=== PATIENT | male | born 1965 | race Caucasian/White ===

== ENCOUNTER 2020-12-23 12:00 | Outpatient (RCR) | payer BC, SELFPAY | END 2021-02-15 23:59 | LOC: IMMUN 12:00 | PROVIDERS: Referring Provider Family Medicine; Visit Provider Family Medicine | DX: Z23 Encounter for immunization (principal) | CPT/HCPCS: 0001A; 0002A; 91300 ==

== ENCOUNTER 2022-08-29 13:15 | Emergency (ER) | payer BC, SELFPAY ==
[2022-08-29 13:17] VITALS: BP 138/68; PULSE 79; RESP 18; TEMP 37.1; O2SAT 96; BMI 24.4
--- NOTE | 2022-08-29 13:43 | EX.ED.DYSGE1 ---
HPI History of Present Illness Chief Complaint: Nosebleed Narrative Narrative: Patient presents with left epistaxis. Started suddenly at work. He is having quite a bit of clots and quite brisk bleeding. No trauma. PFSH PFSH Medical History no medical history Home Medications clindamycin HCl 150 mg capsule 150 mg PO TID #15 caps 08/29/22 [Rx Last Taken Unknown] Allergy/AdvReac Type Severity Reaction Status Date / Time No Known Allergies Allergy Verified 08/29/22 13:22 Surgical History no surgical history Social History (System 08/16/21 @ 15:05 by Adelaide Cobb) Smoking Status: Never smoker ROS ROS ED ROS Narrative Past medical history: Reviewed Medications: Reviewed Social history: Noncontributory Review of systems: All systems negative except as indicated General: No fever ENT: Epistaxis as in HPI Neck: No neck pain Cardiovascular: No chest pain Skin: No rash Hematologic: No easy bleeding or easy bruising EXAM Physical Exam Narrative Exam Narrative: Physical exam General: Patient does not appear in significant distress Head: Normocephalic, Atraumatic Eyes: Conjunctiva not pale ENT: There is severe breath left anterior epistaxis I cannot see an obvious point of bleed where I could cauterize. Neck: Supple, Nontender, No lymphadenopathy Cardiovascular: Regular rate, Regular rhythm Respiratory: No distress, CTA bilaterally Skin: Normal color, No rash Neurological: No facial droop Psychological: Normal affect Const Vital Signs: 08/29/22 13:17 Temperature 98.8 F Temperature Source Temporal Pulse Rate 79 Respiratory Rate 18 Blood Pressure 138/68 H Blood Pressure Mean 91 Pulse Ox 96 Oxygen Delivery Method Room Air MDM MDM Radiography Diagnostic Testing: Patient will be discharged with antibiotics he appears well he will be referred to ear nose and throat. Procedures Other Procedures Procedure(s): Epistaxis management Verbal consent Location left anterior epistaxis I inserted a anterior 5.5 cm Rhino Rocket and inflated with about 8 mL of air. Patient tolerated procedure well. Epistaxis stopped. Discharge Plan Triage Chief Complaint: Nosebleed ED Provider: Dov Thomson Dx/Rx/DC Orders Clinical Impression: Acute anterior epistaxis Instructions: ED Epistaxis (Adult) Prescriptions: New clindamycin HCl 150 mg capsule 150 mg PO TID Qty: 15 0RF Primary Care Provider: Care Physician,No Primary Referrals: Osvaldo Moreno MD [Med Staff - Active Staff] - 3-5 Days (for packing removal) Care Physician,No Primary [Primary Care Provider] - Disposition Disposition: Home, Self Care
[2022-08-29 14:36] VITALS: BP 155/93; PULSE 74; RESP 16; O2SAT 100
== END 2022-08-29 14:46 | disposition home or self-care (01) ==
PROVIDERS: Emergency Provider Emergency Medicine; Visit Provider Emergency Medicine
DX: R04.0 Epistaxis (principal)
CPT/HCPCS: 30901; 99284; A4216